=== PATIENT | male | born 1965 | race Caucasian/White ===

== ENCOUNTER 2023-11-18 13:07 | Inpatient (IN) | payer OTHER ==
[2023-11-18 14:57] LABS: Basophils % (A) 0 %; Eosinophils % (A) 0 %; HCT 38.8 % (39.0-53.0); HGB 12.9 gm/dL (13.0-17.5); Lymphocytes % (A) 14 %; MCH 33.7 pg (25.0-35.0); MCHC 33.2 g/dL (31.0-37.0); MCV 101.6 fL (80.0-100.0); Mean Platelet Volume 8.9; Monocytes # (A) 0.4 k/uL (0-1.0); Monocytes % (A) 6 %; Neutrophils # (A) 5.6 k/uL (1.3-7.7); Neutrophils % (A) 77 %; RBC 3.81 m/uL (4.30-5.90); RDW 12.9 % (11.5-15.5); WBC 7.2 k/uL (3.8-10.6)
[2023-11-18 15:07] LABS: ALT 62 U/L (4-49); African American GFR (CKD) >90 (>60 ml/min/1.73 sqM); Albumin 4.5 g/dL (3.5-5.0); Anion Gap 16 mmol/L; Blood Urea Nitrogen 16 mg/dL (9-20); Carbon Dioxide 20 mmol/L (22-30); Chloride 95 mmol/L (98-107); Glucose 105 mg/dL (74-99); Non-African American GFR(CKD) >90 (>60 ml/min/1.73 sqM); Sodium 131 mmol/L (137-145); Total Bilirubin 1.8 mg/dL (0.2-1.3); Total Protein 7.3 g/dL (6.3-8.2)
[2023-11-18 15:10] LABS: AST 110 U/L (17-59); Alkaline Phosphatase 107 U/L (38-126); Potassium 4.5 mmol/L (3.5-5.1)
[2023-11-18 15:40] LABS: Large Platelets Present
[2023-11-18 15:41] LABS: Platelet Count 86 k/uL (150-450)
[2023-11-18 15:42] LABS: Polychromasia Present
[2023-11-18] MEDS: SODIUM CHLORIDE 0.9% 1,000 ML IV ONE (15:52)
[2023-11-18] MEDS: KETOROLAC 15 MG/ML 1 ML VIAL IVP STA (15:52)
[2023-11-18] MEDS: ONDANSETRON 4 MG/2 ML VIAL IVP STA (16:00)
[2023-11-18] MEDS: SODIUM CHLORIDE 0.9% 1,000 ML BAG IV STA (16:01)
[2023-11-18] MEDS: LORazepam 2 MG/ML INJ IV STA (16:02)
--- NOTE | 2023-11-18 17:10 | CT ---
EXAMINATION TYPE: CT facial bones w con DATE OF EXAM: 11/18/2023 HISTORY: left sided facial pain and swelling TECHNIQUE: CT scan of the suprahyoid neck/facial skeleton. Automated exposure control for dose reduct ion was used. Total DLP: 532.8 mGycm IV Contrast: 100ml mL of Isovue 300. COMPARISON: None FINDINGS: There is prominence of the vasculature throughout and surrounding the right and left cavernous sinuse s, with prominence of the ophthalmic veins bilaterally and with minimal preseptal soft tissue swellin g of the orbits bilaterally, left greater than right. Mild inflammatory changes seen at the base of the right maxillary sinus. Remainder of the paranasal s inuses are clear. The middle ear cavities and mastoid sinus air cells are also clear. Salivary glands: Unremarkable. Neck vasculature: No acute findings. Skeletal structures: No focal aggressive findings. Results discussed just now with the ordering physician. IMPRESSION: Prominent cavernous sinus and orbital vasculature; recommend further characterization with brain MRI/ MRA without and with contrast.
[2023-11-18 18:21] LABS: Erythrocyte Sedimentation Rate 11 mm/Hr (0-20)
--- NOTE | 2023-11-18 18:27 | ED ---
General Adult HPI - General Chief complaint: Neuro Symptoms/Deficit Stated complaint: facial pain and swelling, detox Time Seen by Provider: 11/18/23 13:15 Source: patient Mode of arrival: ambulatory Limitations: no limitations - History of Present Illness Initial comments: 58-year-old male presents emergency department as a transfer from [facility]. Patient says that he has had chronic left-sided facial pain however over the past 3 days he has had worsening pain and swelling. States that this is very common for him to have worsening pain in the summertime. Patient was attempting to check into [facility] today for alcohol abuse. He mentioned that he was having sinus pain and they made him come to the hospital for medical clearance. He admits to pain that radiates to the back of his eye. Admits to some blurred vision in that eye. No fevers. No nasal drainage. Denies any trauma. Patient states that he has gone as far as seeing the "sinus clinic in [place]". no other alleviating, precipitating or modifying factors - Related Data Home Medications Medication Instructions Recorded Confirmed Dailyvite 1 tab PO DAILY 11/18/23 11/18/23 Fluticasone Nasal [place] [Flonase 2 spray EA NOSTRIL DAILY 11/18/23 11/18/23 Nasal [place]] Folic Acid 1 mg PO DAILY 11/18/23 11/18/23 Ibuprofen [Motrin] 800 mg PO Q8H PRN 11/18/23 11/18/23 Lactulose 20 gm PO DAILY PRN 11/18/23 11/18/23 Loperamide HCl [Imodium A-D] 4 mg PO QID PRN MDD 16 mg 11/18/23 11/18/23 Magnesium Oxide [West] 500 mg PO W/BRKFST 11/18/23 11/18/23 Mylanta Regular Strength 30 ml PO Q4H PRN 11/18/23 11/18/23 Pantoprazole [Protonix] 40 mg PO BID 11/18/23 11/18/23 Thiamine [Vitamin B-1] 100 mg PO DAILY 11/18/23 11/18/23 cloNIDine HCL [Catapres] 0.1 - 0.3 mg PO Q4H PRN 11/18/23 11/18/23 lisinopriL [Zestril] 10 mg PO DAILY 11/18/23 11/18/23 ondansetron HCL [Zofran] 8 mg PO Q6H PRN 11/18/23 11/18/23 Previous Rx's Medication Instructions Recorded Amoxic-Pot Clav 875-125Mg 1 tab PO Q12HR 5 Days #10 tab 11/22/23 [Augmentin 875-125] OXcarbazepine [Trileptal] 150 mg PO BID #60 tab 11/22/23 chlordiazePOXIDE HCl [Librium] 25 mg PO TID 2 Days #6 capsule 11/22/23 Allergies Allergy/AdvReac Type Severity Reaction Status Date / Time No Known Allergies Allergy Verified 11/18/23 14:26 Review of Systems ROS Statement: Those systems with pertinent positive or pertinent negative responses have been documented in the HPI. ROS Other: All systems not noted in ROS Statement are negative. Past Medical History Past Medical History: Hypertension Additional Past Medical History / Comment(s): alcohol abuse ([facility]) Past Surgical History: No Surgical Hx Reported Past Psychological History: No Psychological Hx Reported Smoking Status: Current every day smoker Past Alcohol Use History: Abuse, Daily General Exam Limitations: no limitations General appearance: alert, in no apparent distress Head exam: Present: atraumatic, normocephalic, normal inspection Eye exam: Present: normal appearance, PERRL, EOMI. Absent: scleral icterus, conjunctival injection, periorbital swelling ENT exam: Present: mucous membranes moist, other (Tenderness to palpation of the left maxillary sinus) Neck exam: Present: normal inspection. Absent: tenderness, meningismus, lymphadenopathy Respiratory exam: Present: normal lung sounds bilaterally. Absent: respiratory distress, wheezes, rales, rhonchi, stridor Cardiovascular Exam: Present: normal rhythm, tachycardia, normal heart sounds. Absent: systolic murmur, diastolic murmur, rubs, gallop, clicks GI/Abdominal exam: Present: soft, normal bowel sounds. Absent: distended, tenderness, guarding, rebound, rigid Extremities exam: Present: normal inspection, full ROM, normal capillary refill. Absent: tenderness, pedal edema, joint swelling, calf tenderness Back exam: Present: normal inspection Neurological exam: Present: alert, oriented X3, CN II-XII intact Psychiatric exam: Present: normal affect, normal mood Skin exam: Present: warm, dry, intact, normal color. Absent: rash Course Vital Signs 11/18/23 11/18/23 11/18/23 13:13 15:56 18:43 Temperature 98.3 F Pulse Rate 123 H 98 95 Pulse Rate [ Right] Respiratory 18 18 18 Rate Blood Pressure 132/91 144/88 162/95 Blood Pressure [Right Arm] O2 Sat by Pulse 96 97 97 Oximetry 11/19/23 11/19/23 11/19/23 01:50 05:49 07:00 Temperature 98.2 F Pulse Rate 77 Pulse Rate [ 72 Right] Respiratory 18 18 16 Rate Blood Pressure 142/100 Blood Pressure 155/106 159/92 [Right Arm] O2 Sat by Pulse 97 98 98 Oximetry Medical Decision Making - Medical Decision Making Was pt. sent in by a medical professional or institution (, PA, [employer], urgent care, hospital, or detention...) When possible be specific @ -Patient was sent in by [facility] Did you speak to anyone other than the patient for history (EMS, parent, family, police, friend...)? What history was obtained from this source @ -Spoke with EMS for history Did you review nursing and triage notes (agree or disagree)? Why? @ -I reviewed and agree with nursing and triage notes Were old charts reviewed (outside hosp., previous admission, EMS record, old EKG, old radiological studies, urgent care reports/EKG's, detention records)? Report findings @ -No old charts were reviewed Differential Diagnosis (chest pain, altered mental status, abdominal pain women, abdominal pain men, vaginal bleeding, weakness, fever, dyspnea, syncope, headache, dizziness, GI bleed, back pain, seizure, CVA, palpatations, mental health, musculoskeletal)? @ -Acute sinusitis, cluster headache, chronic sinusitis, sinus thrombus EKG interpreted by me (3pts min.). @ -Yes and demonstrates sinus tachycardia with a rate of 102. DE interval 146. QRS 88. QTc of 385. No acute ST segment elevations or depressions X-rays interpreted by me (1pt min.). @ -None done CT interpreted by me (1pt min.). @ -Yes and demonstrates irregularity of the cavernous sinus and orbital vascula ture. Recommend MRI MRA U/S interpreted by me (1pt. min.). @ -None done What testing was considered but not performed or refused? (CT, X-rays, U/S, labs)? Why? @ -None What meds were considered but not given or refused? Why? @ -None Did you discuss the management of the patient with other professionals (professionals i.e. , PA, [employer], lab, RT, psych nurse, psychosocial rehabilitation counselor, manager night, te acher, commanding officer garage, insurance case manager)? Give summary @ -I spoke with Dr. Osborne in regards to the CT. He does recommend MRI. I called and spoke with Dr. Abreu who is the neurointensivist. Asked whether the patient should be transferred today for further imaging however he said that the patient should stay at [facility] and obtain MRI. If patient has abnormal MRI/MRA then transfer could be initiated at that time Was smoking cessation discussed for >3mins.? @ -No Was critical care preformed (if so, how long)? @ -No Were there social determinants of health that impacted care today? How? (Homelessness, low income, unemployed, alcoholism, drug addiction, transportation, low edu. Level, literacy, decrease access to med. care, halfway, rehab)? @ -Patient is currently in rehab Was there de-escalation of care discussed even if they declined (Discuss DNR or withdrawal of care, Hospice)? DNR status @ -No What co-morbidities impacted this encounter? (DM, HTN, Smoking, COPD, CAD, Cancer, CVA, ARF, Chemo, Hep., AIDS, mental health diagnosis, sleep apnea, morbid obesity)? @ -Chronic left-sided sinus pain Was patient admitted / discharged? Hospital course, mention meds given and route, prescriptions, significant lab abnormalities, going to OR and other pertinent info. @ -Upon arrival patient was seen and evaluated in [place] [address]. Thorough history and physical exam was performed. IV was established. Laboratory studies were conducted. Patient did have a CT of his head as he is reporting to worsening symptoms over the past couple of days. CT is read as an irregularity of the cavernous sinus. The radiologist is recommending an MRI and MRA. I called and spoke with Dr. Abreu who states that the studies should be obtained before transfer. Patient will be admitted to [facility] with the MRA and MRI ordered. Neurology will be consulted. Patient was agreeable with this plan and he was admitted to the floor in stable condition Undiagnosed new problem with uncertain prognosis? @ -No Drug Therapy requiring intensive monitoring for toxicity (Heparin, Nitro, Insulin, Cardizem)? @ -No Were any procedures done? @ -No Diagnosis/symptom? @ -Acute exacerbation of left-sided facial pain, possible cavernous sinus thrombus Acute, or Chronic, or Acute on Chronic? @ -Acute on chronic Uncomplicated (without systemic symptoms) or Complicated (systemic symptoms)? @ -Complicated Side effects of treatment? @ -No Exacerbation, Progression, or Severe Exacerbation? @ -No Poses a threat to life or bodily function? How? (Chest pain, [place], [place], pneumonia, PE, COPD, DKA, ARF, appy, cholecystitis, CVA, Diverticulitis, Homicidal, Suicidal, threat to staff... and all critical care pts) @ -No - Lab Data Result diagrams: 11/21/23 05:34 11/21/23 05:34 Lab Results 11/18/23 11/18/23 Range/Units 14:50 14:50 WBC 7.2 (3.8-10.6) k/uL RBC 3.81 L (4.30-5.90) m/uL Hgb 12.9 L (13.0-17.5) gm/dL Hct 38.8 L (39.0-53.0) % MCV 101.6 H (80.0-100.0) fL MCH 33.7 (25.0-35.0) pg MCHC 33.2 (31.0-37.0) g/dL RDW 12.9 (11.5-15.5) % Plt Count 86 L (150-450) k/uL MPV 8.9 Neutrophils % 77 % Lymphocytes % 14 % Monocytes % 6 % Eosinophils % 0 % Basophils % 0 % Neutrophils # 5.6 (1.3-7.7) k/uL Lymphocytes # 1.0 (1.0-4.8) k/uL Monocytes # 0.4 (0-1.0) k/uL Eosinophils # 0.0 (0-0.7) k/uL Basophils # 0.0 (0-0.2) k/uL Manual Slide Review Performed Large Platelets Present Polychromasia Present ESR 11 (0-20) mm/Hr Sodium 131 L (137-145) mmol/L Potassium 4.5 (3.5-5.1) mmol/L Chloride 95 L (98-107) mmol/L Carbon Dioxide 20 L (22-30) mmol/L Anion Gap 16 mmol/L BUN 16 (9-20) mg/dL Creatinine 0.70 (0.66-1.25) mg/dL Est GFR (CKD-EPI)AfAm >90 (>60 ml/min/1.73 sqM) Est GFR (CKD-EPI)NonAf >90 (>60 ml/min/1.73 sqM) Glucose 105 H (74-99) mg/dL Calcium 9.0 (8.4-10.2) mg/dL Total Bilirubin 1.8 H (0.2-1.3) mg/dL AST 110 H (17-59) U/L ALT 62 H (4-49) U/L Alkaline Phosphatase 107 (38-126) U/L Total Protein 7.3 (6.3-8.2) g/dL Albumin 4.5 (3.5-5.0) g/dL Disposition Clinical Impression: Sinus pain, Ocular pain, left eye, Thrombosis of cavernous venous sinus Disposition: ADMITTED IP TO THIS [facility] Condition: Serious Is patient prescribed a controlled substance at d/c from ED?: No Time of Disposition: 18:35 Decision to Admit Reason: Admit from EC Decision Date: 11/18/23 Decision Time: 18:35
[2023-11-18] MEDS ORDERED: LORazepam 2 MG/ML INJ IV PRN (18:31)
[2023-11-18] MEDS ORDERED: NALOXONE 0.4 MG/ML 1 ML VIAL IV PRN (18:40)
[2023-11-18] MEDS: SODIUM CHLORIDE 0.9% 1,000 ML IV SCH (19:20)
[2023-11-18] MEDS: THIAMINE 100 MG/ML 2 ML VIAL IM STA (19:21)
[2023-11-18] MEDS: LORazepam 2 MG/ML INJ IV PRN (19:49)
[2023-11-18] MEDS ORDERED: KETOROLAC 15 MG/ML 1 ML VIAL IM PRN (22:37)
[2023-11-18] MEDS: ONDANSETRON 4 MG/2 ML VIAL IVP PRN (23:27)
[2023-11-18] MEDS: PANTOPRAZOLE 40 MG/10 ML VIAL IVP SCH (23:27)
[2023-11-18] MEDS: KETOROLAC 15 MG/ML 1 ML VIAL IVP PRN (23:31)
[2023-11-19] MEDS: LORazepam 2 MG/ML INJ IV PRN (06:48)
[2023-11-19] MEDS ORDERED: LORazepam 1 MG/0.5 ML VIAL IV PRN ×2 (08:23→08:24)
[2023-11-19] MEDS: THIAMINE 100 MG TAB PO SCH (09:12)
[2023-11-19] MEDS: HYDROmorphone 0.5 MG/0.5 ML SYRINGE IVP PRN (09:20)
[2023-11-19 11:28] LABS: BUN/Creat Ratio 19.14 Ratio (12.00-20.00); Blood Urea Nitrogen 13.4 mg/dL (9.0-27.0); Calcium 8.7 mg/dL (8.7-10.3); Carbon Dioxide 20.3 mmol/L (21.6-31.8); Chloride 99 mmol/L (96-109); Glucose 125 mg/dL (70-110); Potassium 3.3 mmol/L (3.5-5.5); Sodium 134 mmol/L (135-145)
[2023-11-19 12:05] LABS: Basophils # (A) 0.02 X 10*3/uL (0.00-0.10); Basophils % (A) 0.4 %; Eosinophils # (A) 0.24 X 10*3/uL (0.04-0.35); Eosinophils % (A) 5.1 %; HCT 31.8 % (39.6-50.0); HGB 11.1 g/dL (13.0-17.0); Lymphocytes # (A) 1.56 X 10*3/uL (0.90-5.00); Lymphocytes % (A) 33.3 %; MCH 33.8 pg (27.0-32.0); MCHC 34.9 g/dL (32.0-37.0); Mean Platelet Volume 11.3 FL (9.5-12.2); Monocytes # (A) 0.63 X 10*3/uL (0.20-1.00); Monocytes % (A) 13.4 %; NRBC Per 100 WBC 0 X 10*3/uL (0.00-0.01); Neutrophils # (A) 2.23 X 10*3/uL (1.80-7.70); Neutrophils % (A) 47.6 %; Platelet Count 62 X 10*3/uL (140-440); RBC 3.28 X 10*6/uL (4.40-5.60); RDW 12.9 % (11.5-14.5); WBC 4.69 X 10*3/uL (4.50-10.00)
[2023-11-19] MEDS: predniSONE 20 MG TAB PO SCH (13:29)
[2023-11-19] MEDS ORDERED: LOPERAMIDE 2 MG CAP PO PRN (13:41)
[2023-11-19] MEDS ORDERED: LACTULOSE 200 GM/300 ML (FROM 1/2 GAL JUG) PO PRN (13:41)
[2023-11-19] MEDS ORDERED: ONDANSETRON 4 MG TAB PO PRN (13:41)
[2023-11-19] MEDS ORDERED: LACTULOSE 20 GM/30 ML CUP PO PRN (13:52)
[2023-11-19] MEDS: cloNIDine HCL 0.1 MG TAB PO SCH (14:18)
--- NOTE | 2023-11-19 15:02 | PN ---
PROGRESS NOTE DATE OF SERVICE: 11/19/2023 CHIEF COMPLAINT: Left facial swelling and severe pain, and detoxification. HISTORY OF PRESENT ILLNESS: This is a 58-year-old gentleman with a past medical history of multiple medical problems including history of EtOH in [place] . The patient is complaining of pain and swelling of the left facial area. The patient came to [facility] and a face CAT scan was done, which showed prominent cavernous sinus and vasculature. MRI with and without contrast is being recommended by the CAT scan. There is no history of any fever, rigors, or chills. No history of headache or loss of consciousness. PAST MEDICAL HISTORY: History of EtOH, history of hypertension, rest of the history and rest of chart is also reviewed. HOME MEDICATIONS: Reviewed include Zofran, doses and rest of medications noted. ALLERGIES: None. FAMILY HISTORY: No history of heart disease or strokes in the family. SOCIAL HISTORY: Smoking and alcohol. REVIEW OF SYSTEMS: A 14-point review is negative except as mentioned earlier. PHYSICAL EXAMINATION: VITAL SIGNS: Pulse 72, blood pressure 150/92, respirations 16. HEENT: Conjunctivae normal. Facial swelling and pain present. NECK: No jugular venous distention. CARDIOVASCULAR: S1, S2. RESPIRATIONS: Diminished at the bases, few scattered rhonchi and crackles. ABDOMEN: Soft. NERVOUS SYSTEM: Nonfocal. LEGS: No edema, no swelling. SKIN: No ulcer, rash, bleeding. JOINTS: No active deforming arthropathy. LABORATORY DATA: WBC 4.6, hemoglobin is 11.1, rest of the labs noted. ASSESSMENT: 1. Left eye pain and swelling, possibly rule out cavernous sinus thrombosis. 2. Rule out periorbital infection and cellulitis. 3. ETOH and withdrawal. 4. Hyponatremia. 5. Hypokalemia. 6. Anemia. 7. Multiple complex medical issues. 8. Hypertension. 9. History of nicotine dependence. RECOMMENDATIONS AND DISCUSSION: This 58-year-old gentleman presented with multiple complex medical issues, we will monitor the patient closely, we will initiate current medications. I would recommend MRI of the brain with and without contrast and assess MRV. I would also recommend Infectious Disease evaluation, cultures, sed rate, CIWA protocol. Overall prognosis is extremely guarded because of multiple complex medical issues. Further recommendations to follow. MMODL / IJN: [id number] / [facility]
--- NOTE | 2023-11-19 17:21 | MR ---
EXAMINATION TYPE: MRA head wo con MRV head wo con DATE OF EXAM: 11/19/2023 5:06 PM CLINICAL INDICATION:Male, 58 years old with history of occular pain, abn ct brain, Occular pain, Abno rmal CT brain COMPARISON: MRI same day, CT facial bones 11/18/2023. TECHNIQUE: MRA brain: 3-D [id number] Axial with MIP and 3-D reconstruction performed on a separate workstati on. MRV of the brain: performed utilizing two-dimensional [id number] technique MIP and 3-D reconstruc tion. Performed on a separate workstation. IV Contrast: cc (None if empty) Findings: Vertebral arteries: The vertebral arteries are patent. Vertebral arteries are codominant. Basilar artery: The basilar artery is intact. The basilar artery bifurcation is normal. Internal Carotid arteries: The cervical, petrous, cavernous and supraclinoid segments are normal. ALEJANDRO: Patent without evidence of aneurysm. ACOM: Patent without evidence of aneurysm. MCA: Patent without evidence of aneurysm. SLEEP MANAGER: Patent without evidence of aneurysm. PCOM: Hypoplastic bilaterally. There is no evidence of venous occlusion or collateral circulation. There is no evidence of sinus th rombosis. Dominant right transverse sinus and atrophic diminutive left. IMPRESSION: 1. No evidence of venous sinus thrombosis. 2. No evidence of intracranial aneurysm or significant stenosis.
[2023-11-19] MEDS: AMPICILLIN-SULBACTAM 3 GM in SODIUM CHLORIDE 0.9% 100 ML IVPB SCH (18:19)
[2023-11-19] MEDS: LORazepam 1 MG/0.5 ML VIAL IV PRN (18:20)
--- NOTE | 2023-11-19 22:52 | P.CONS ---
History of Present Illness - Reason for Consult Consult date: 11/19/23 Infection questionable Requesting physician: Morgan Guillermo - Chief Complaint Left periorbital and maxillary pain x days - History of Present Illness Patient is a 58-year-old male with a past medical history significant for hypertension alcohol abuse current everyday smoker presenting to the hospital for evaluation of pain to the left periorbital and left maxillary area that apparently has been going on for 2 weeks now patient mention has been evaluated in the outpatient setting and has been treated with steroids and decongestant without any improvement patient has been describing the pain to be sharp moderate to severe intensity without radiation with associated swelling but no drainage patient denies having any photophobia difficulty swallowing or significant postnasal drip with the symptoms the patient has been evaluated on presentation to the hospital patient was afebrile and no fever have recorded subsequently patient was not tachycardic hypotensive or hypoxic and no need for supplemental oxygen patient did have white count of 7.2 creatinine 0.70 electrolytes are normal liver isms are mildly elevated have patient did have a CT that have been suggestive prominent cavernous sinus and orbital vasculature recommend further characterization with a brain MRI which has been ordered currently in progress infectious was consulted for possible infection and need for antibiotic therapy Review of Systems Positive point and negatives has been mentioned in the HPI, complete review of systems was performed and all other systems are negative Past Medical History Past Medical History: Hypertension Additional Past Medical History / Comment(s): alcohol abuse ([facility]) History of Any Multi-Drug Resistant Organisms: None Reported Past Surgical History: Cholecystectomy Past Anesthesia/Blood Transfusion Reactions: No Reported Reaction Past Psychological History: No Psychological Hx Reported Smoking Status: Current every day smoker Past Alcohol Use History: Abuse, Daily Past Drug Use History: None Reported Medications and Allergies Home Medications Medication Instructions Recorded Confirmed Type Dailyvite 1 tab PO DAILY 11/18/23 11/18/23 History Fluticasone Nasal [place] [Flonase 2 spray EA NOSTRIL DAILY 11/18/23 11/18/23 History Nasal [place]] Folic Acid 1 mg PO DAILY 11/18/23 11/18/23 History Ibuprofen [Motrin] 800 mg PO Q8H PRN 11/18/23 11/18/23 History Lactulose 20 gm PO DAILY PRN 11/18/23 11/18/23 History Loperamide HCl [Imodium A-D] 4 mg PO QID PRN MDD 16 mg 11/18/23 11/18/23 History Magnesium Oxide [West] 500 mg PO W/BRKFST 11/18/23 11/18/23 History Mylanta Regular Strength 30 ml PO Q4H PRN 11/18/23 11/18/23 History Pantoprazole [Protonix] 40 mg PO BID 11/18/23 11/18/23 History Thiamine [Vitamin B-1] 100 mg PO DAILY 11/18/23 11/18/23 History cloNIDine HCL [Catapres] 0.1 - 0.3 mg PO Q4H PRN 11/18/23 11/18/23 History lisinopriL [Zestril] 10 mg PO DAILY 11/18/23 11/18/23 History ondansetron HCL [Zofran] 8 mg PO Q6H PRN 11/18/23 11/18/23 History Amoxic-Pot Clav 875-125Mg 1 tab PO Q12HR 5 Days #10 tab 11/22/23 Rx [Augmentin 875-125] OXcarbazepine [Trileptal] 150 mg PO BID #60 tab 11/22/23 Rx chlordiazePOXIDE HCl [Librium] 25 mg PO TID 2 Days #6 capsule 11/22/23 Rx Allergies Allergy/AdvReac Type Severity Reaction Status Date / Time No Known Allergies Allergy Verified 11/18/23 14:26 Physical Exam Vitals: Vital Signs Temp Pulse Pulse Resp BP BP Pulse Ox 11/19/23 14:17 78 155/95 11/19/23 07:00 98.2 F 72 16 159/92 98 11/19/23 05:49 77 18 142/100 98 11/19/23 01:50 18 155/106 97 11/18/23 18:43 95 18 162/95 97 11/18/23 15:56 98 18 144/88 97 Intake and Output 11/18/23 11/19/23 11/19/23 22:59 06:59 14:59 Intake Total 118 Balance 118 Intake: Oral 118 Other: Voiding Method Toilet Weight 75.75 kg GENERAL DESCRIPTION: Middle-aged male lying in bed, no distress. No tachypnea or accessory muscle of respiration use. HEENT: Shows Pallor , no scleral icterus. Oral mucous membrane is dry. No pharyngeal erythema or thrush NECK: Trachea central, no thyromegaly. LUNGS: Unlabored breathing. Clear to auscultation anteriorly. No wheeze or crackle. HEART: S1, S2, regular rate and rhythm. No loud murmur ABDOMEN: Soft, no tenderness , guarding or rigidity, no organomegaly EXTREMITIES: No edema of feet. SKIN: No rash, no masses palpable. NEUROLOGICAL: The patient is awake, alert, oriented x3, mood and affect normal. Results CBC & Chem 7: 11/21/23 05:34 11/21/23 05:34 Labs: Abnormal Lab Results - Last 24 Hours (Table) 11/18/23 11/18/23 11/19/23 Range/Units 14:50 14:50 07:29 RBC 3.81 L 3.28 L (4.30-5.90) m/uL Hgb 12.9 L 11.1 L (13.0-17.5) gm/dL Hct 38.8 L 31.8 L (39.0-53.0) % MCV 101.6 H (80.0-100.0) fL MCH 33.8 H (27.0-32.0) pg Plt Count 86 L 62 L (150-450) k/uL Immature Plt Fraction 9.0 H (1.1-6.1) % Sodium 131 L (137-145) mmol/L Potassium (3.5-5.5) mmol/L Chloride 95 L (98-107) mmol/L Carbon Dioxide 20 L (22-30) mmol/L Anion Gap (4.00-12.00) mmol/L Glucose 105 H (74-99) mg/dL Total Bilirubin 1.8 H (0.2-1.3) mg/dL AST 110 H (17-59) U/L ALT 62 H (4-49) U/L 11/19/23 Range/Units 07:29 RBC (4.30-5.90) m/uL Hgb (13.0-17.5) gm/dL Hct (39.0-53.0) % MCV (80.0-100.0) fL MCH (27.0-32.0) pg Plt Count (150-450) k/uL Immature Plt Fraction (1.1-6.1) % Sodium 134 L (137-145) mmol/L Potassium 3.3 L (3.5-5.5) mmol/L Chloride (98-107) mmol/L Carbon Dioxide 20.3 L (22-30) mmol/L Anion Gap 14.70 H (4.00-12.00) mmol/L Glucose 125 H (74-99) mg/dL Total Bilirubin (0.2-1.3) mg/dL AST (17-59) U/L ALT (4-49) U/L Assessment and Plan (1) Sinus pain Status: Acute Code(s): J34.89 - OTHER SPECIFIED DISORDERS OF NOSE AND NASAL SINUSES SNOMED Code(s): 10145613 Plan: 1patient presented to hospital with left periorbital and maxillary area pain that has been going on for more than 2 weeks failed respond to the steroid and decongestant therapy with a possible component of bacterial sinusitis not entirely excluded. Abnormality on the facial CT MRI and MRA has been ordered per radiology recommendation 2-we will check inflammatory markers 3-start empirical Unasyn 3 g every 6 hours while waiting for the workup to be completed We will follow on clinical condition and cultures to further adjust medication if needed Thank you for this consultation we will follow the patient along with you Dictation was produced using [employer] dictation software. please excuse any grammatical, word or spelling errors. Time with Patient: Greater than 30
[2023-11-20] MEDS: MAGNESIUM OXIDE 400 MG TAB PO SCH (05:50)
[2023-11-20] MEDS: lisinopriL 10 MG TAB PO SCH (08:52)
[2023-11-20] MEDS: FOLIC ACID 1 MG TAB PO SCH (08:52)
[2023-11-20] MEDS: MULTIVITAMINS, THERA 1 EACH TAB PO SCH (08:52)
[2023-11-20] MEDS ORDERED: FOLIC ACID-VIT B COMPLEX-VIT C 1 CAP PO SCH (09:00)
--- NOTE | 2023-11-20 09:18 | MR ---
EXAMINATION TYPE: MR brain wo/w con DATE OF EXAM: 11/19/2023 5:17 PM CLINICAL INDICATION:Male, 58 years old with history of occular pain, abn ct brain, Occular pain, Abno rmal CT brain COMPARISON: MRI/MRA same day TECHNIQUE: Multi planar, multi sequence imaging was performed through the brain including: T1, T2, In version recovery, susceptibility weighted imaging and gradient echo imaging and Diffusion weighted im aging. The patient was then given intravenous contrast and multi planar, T1 fat-saturation images wer e obtained. IV Contrast: 7.5 cc Gadavist FINDINGS: The pineal gland demonstrates a mass measuring 11 x 11 mm which is higher FLAIR signal and high T2 signal. Thin septations are suggested on T1-weighted sagittal imaging. T2-weighted imaging moreno s poor slice selection. The intraconal and extra conal fat are relatively symmetric no abnormal orbit al enhancing masses identified. The conde-white junctions, ventricular system, basal cisterns appear u nremarkable. Diffusion-weighted imaging shows no evidence of restricted diffusion to suggest acute/s ubacute infarct. Intracranial arterial flow voids are maintained. Midline structures show no abnormal ity. Scattered foci of high T2 signal intensity are seen within the periventricular white matter. The susceptibility weighted images do not reveal any evidence for micro-hemorrhage. After administration of gadolinium, no abnormal enhancement is seen. The bone marrow signal is within normal limits. Paranasal sinuses and mastoid air cells: Mild scattered paranasal sinus disease. Visualized orbits: Orbital contents are intact. IMPRESSION: 1. No abnormal postcontrast enhancement involving the globes and orbits. The intraconal extraconal fa t are relatively symmetrical. No evidence of acute/subacute infarct, or abnormal enhancement. 2. 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 Consider short-term follow-up in 3-6 months. Comparison with remote pr iors at outside institutions may be of benefit for stability.
--- NOTE | 2023-11-20 09:33 | P.CNNES ---
History of Present Illness Consult date: 11/19/23 Requesting physician: Rochelle Dukes Reason for Consult: left sinus pain, abn ct brain History of Present Illness: Patient is a 58-year-old left-handed male came to the hospital yesterday at 1:07 PM for headaches. Patient has history of alcohol abuse, and went to [place] yesterday morning for detox. Patient states that he has tried AA, which did not work. Patient has 5 to 10-year history of alcoholism. Patient was complaining of left orbital pain which was very intense, therefore he was sent to the hospital for further evaluation. Patient states that he developed intermittent clusters of left facial pain, involving the left V1 distribution, around the eyes, nose, left cheek since 2009. Initially it was very light. However the pain has recurred every summer. The pain usually starts in October, and continues till December every year and then goes away for rest of the year. He has seen neurologist, who diagnosed him with cluster headache. He had undergone MRI in the past. The pain started again about 1-1/2 weeks ago it is a continuous pain, would not stop. This time the pain is worst than ever. When he eats, drinks, it gets worse, when it feels like "fire dots into his eyes". It has b een steadily getting worse. He is scared to eat or drink because of the pain. Cold wind also bothers him. He gets nausea with the headache. Vital signs on arrival blood pressure 132/91, pulse rate 123, temperature 98.3. Blood test shows normal WBC hemoglobin 12.9 with elevated MCV 101.6. Platelets 86. Sodium 131 potassium 4.5. Renal functions are normal. AST 1 and 10, ALT 62. CT head showed prominent cavernous sinus and orbital vasculature, recommend further characterization with brain MRI/MRA with and without contrast. I personally reviewed CT head and agree with the findings.. EKG showed sinus tachycardia. Patient has history of smoking half pack per day since age 15. He has hypertension. Patient states that he used to be a weekend drinker but for last 1 year he has been drinking really hard, about 1 pint of vodka per day. Home medications include folic acid, lactulose, Protonix, lisinopril, thiamine, clonidine. Review of Systems All review of systems reviewed, completely unremarkable, except as pertinent positive and negative mentioned in the HPI. Denies any weight loss. No double vision, loss of vision. No chest pain, abdominal pain. Past Medical History Past Medical History: Hypertension Additional Past Medical History / Comment(s): alcohol abuse ([facility]) History of Any Multi-Drug Resistant Organisms: None Reported Past Surgical History: Cholecystectomy Past Anesthesia/Blood Transfusion Reactions: No Reported Reaction Past Psychological History: No Psychological Hx Reported Smoking Status: Current every day smoker Past Alcohol Use History: Abuse, Daily Past Drug Use History: None Reported Medications and Allergies Home Medications Medication Instructions Recorded Confirmed Type Dailyvite 1 tab PO DAILY 11/18/23 11/18/23 History Fluticasone Nasal [place] [Flonase 2 spray EA NOSTRIL DAILY 11/18/23 11/18/23 His tory Nasal [place]] Folic Acid 1 mg PO DAILY 11/18/23 11/18/23 History Ibuprofen [Motrin] 800 mg PO Q8H PRN 11/18/23 11/18/23 History Lactulose 20 gm PO DAILY PRN 11/18/23 11/18/23 History Loperamide HCl [Imodium A-D] 4 mg PO QID PRN MDD 16 mg 11/18/23 11/18/23 History Magnesium Oxide [West] 500 mg PO W/BRKFST 11/18/23 11/18/23 History Mylanta Regular Strength 30 ml PO Q4H PRN 11/18/23 11/18/23 History Pantoprazole [Protonix] 40 mg PO BID 11/18/23 11/18/23 History Thiamine [Vitamin B-1] 100 mg PO DAILY 11/18/23 11/18/23 History cloNIDine HCL [Catapres] 0.1 - 0.3 mg PO Q4H PRN 11/18/23 11/18/23 History lisinopriL [Zestril] 10 mg PO DAILY 11/18/23 11/18/23 History ondansetron HCL [Zofran] 8 mg PO Q6H PRN 11/18/23 11/18/23 History Allergies Allergy/AdvReac Type Severity Reaction Status Date / Time No Known Allergies Allergy Verified 11/18/23 14:26 Physical Examination - Vital Signs Vital Signs: Vital Signs Temp Pulse Pulse Resp BP BP Pulse Ox 11/19/23 07:00 98.2 F 72 16 159/92 98 11/19/23 05:49 77 18 142/100 98 11/19/23 01:50 18 155/106 97 11/18/23 18:43 95 18 162/95 97 11/18/23 15:56 98 18 144/88 97 11/18/23 13:13 98.3 F 123 H 18 132/91 96 Intake and Output 11/18/23 11/19/23 11/19/23 22:59 06:59 14:59 Other: Voiding Method Toilet Weight 75.75 kg Patient is a middle aged male, in no acute distress. Patient is alert awake oriented to time place and person. Speech and language functions are normal. Patient can name and repeat very well. No aphasia or dysarthria. Attention, concentration and fund of knowledge is adequate. Patient is having intermittent bouts of left facial pain in which she has difficulty with speaking. On cranial nerve examination, pupils are equal, round and reacting to light, visual ramos are full on confrontation, with no neglect on double simultaneous stimulation. No Tona's. Extraocular muscles are intact with no nystagmus. Face is symmetric, tongue protrudes to the midline. Palatal elevation and sensation normal, hearing and shoulder shrug normal, facial sensation normal. On muscle strength testing, there is no pronator drift and the strength is normal in arms and legs distally and proximally. Deep tendon reflexes are symmetric 1+ to 2 all over and plantars downgoing. Sensory to touch is equal with no neglect on double simultaneous stimulation. Cerebellar function showed no ataxia for [id number] testing. No dysdiadochokinesia. No ataxia for [id number] testing on either side. Tone and bulk of muscles normal. Gait deferred.. On general examination, there is no carotid bruit or murmur, S1-S2 audible. Chest is clear on consultation. Abdomen is soft nontender. No organomegaly, bowel sounds present. Peripheral pulses are present. No peripheral edema. Results - Laboratory Findings CBC and BMP: 11/19/23 07:29 11/19/23 07:29 Abnormal Lab Findings: Abnormal Labs 11/18/23 11/18/23 11/19/23 14:50 14:50 07:29 RBC 3.81 L 3.28 L Hgb 12.9 L 11.1 L Hct 38.8 L 31.8 L MCV 101.6 H MCH 33.8 H Plt Count 86 L 62 L Immature Plt Fraction 9.0 H Sodium 131 L Potassium Chloride 95 L Carbon Dioxide 20 L Anion Gap Glucose 105 H Total Bilirubin 1.8 H AST 110 H ALT 62 H 11/19/23 07:29 RBC Hgb Hct MCV MCH Plt Count Immature Plt Fraction Sodium 134 L Potassium 3.3 L Chloride Carbon Dioxide 20.3 L Anion Gap 14.70 H Glucose 125 H Total Bilirubin AST ALT Assessment and Plan Assessment: * Intermittent clusters of headache involving the left orbital/upper cheek region, that occurs almost every summer from October through December and then goes away. He has some triggers including eating, drinking or exposure to cold air. His headache has features of both cluster headache, as well as trigeminal neuralgia. Patient states that once the headache goes away in around December, then he has no triggers, and no pain until it comes back the following year in October. CT head was reviewed. There is some right maxillary sinus congestion with possible polyp versus fluid, however no abnormality noted involving the symptomatic left side, in the left maxillary, frontal or sphenoid sinuses. * Chronic alcoholism * Tobacco use * Hypertension Plan: * Patient's headaches has features of cluster headache, as well as some features of trigeminal neuralgia. At this time, we will treat for possible cluster headache with high-dose prednisone, which sometimes aborts these cluster headaches. Patient will be started on prednisone 60 mg daily. If the headache resolves, we will slowly taper down prednisone and may consider treatment like verapamil or lithium. If the headache does not respond to prednisone, we will consider Tegretol. Possible side effects of high-dose prednisone was discussed. * Patient undergoing MRI of the brain with and without contrast, and MRA and MRV of the head. * Optimize control of blood pressure. * Neurology will follow. Thank you for the consult.
[2023-11-20] MEDS ORDERED: Magnesium Replacement Protocol 1 EACH MISC MISCELLANE PRN (10:16)
[2023-11-20] MEDS ORDERED: Potassium Replacement Protocol 1 EACH MISC MISCELLANE PRN (10:16)
[2023-11-20] MEDS: FLUTICASONE 50MCG/SPRAY NASAL 16GM EA NOSTRIL SCH (11:21)
[2023-11-20] MEDS: POTASSIUM CHLORIDE ER 20 MEQ TAB.ER PO SCH (12:35)
[2023-11-20 14:41] LABS: African American GFR (CKD) >90 (>60 ml/min/1.73 sqM); Anion Gap 6 mmol/L; Blood Urea Nitrogen 7 mg/dL (9-20); Calcium 8.5 mg/dL (8.4-10.2); Carbon Dioxide 22 mmol/L (22-30); Chloride 100 mmol/L (98-107); Glucose 153 mg/dL (74-99); Non-African American GFR(CKD) >90 (>60 ml/min/1.73 sqM); Potassium 3.6 mmol/L (3.5-5.1); Sodium 128 mmol/L (137-145)
[2023-11-20] MEDS: OXcarbazepine 150 MG TAB PO SCH (15:38)
[2023-11-20] MEDS: HEPARIN SODIUM,PORCINE 5,000 UNIT/ML 1 ML VIAL SQ SCH (15:38)
[2023-11-20] MEDS: cloNIDine HCL 0.1 MG TAB PO SCH (15:38)
--- NOTE | 2023-11-20 23:17 | PN ---
PROGRESS NOTE DATE OF SERVICE: 11/20/2023 SUBJECTIVE: This is a 58-year-old gentleman, admitted with left facial swelling, had concerns with cavernous sinus thrombosis. The patient has extensive evaluation including MRI. MRI did not show any abnormality in the cavernous sinus intracranially or around the orbit. The patient is on empiric antibiotics per the Infectious Disease evaluation. Symptomatic treatment is also being continued. [facility]. PAST MEDICAL HISTORY: Reviewed. REVIEW OF SYSTEMS: A 14-point review is negative except as mentioned earlier. CURRENT MEDICATIONS: Reviewed include Unasyn, dose and rest of medications reviewed. PHYSICAL EXAMINATION: VITAL SIGNS: Pulse is 83, blood pressure 141/82, respirations 17. HEENT: Conjunctivae normal. CARDIOVASCULAR: S1, S2. RESPIRATIONS: Few scattered rhonchi. ABDOMEN: Soft. NERVOUS SYSTEM: Nonfocal. LABORATORY DATA: Sodium 134, potassium 3.3. ASSESSMENT: 1. Left eye pain and swelling, possibly maxillary sinusitis. 2. Cavernous sinus thrombosis and intracranial pathology ruled out by MRI. 3. No evidence of periorbital infection. 4. ETOH withdrawal. 5. Hypertension. 6. Hyponatremia. 7. Hypokalemia. 8. Multiple complex medical issues. RECOMMENDATIONS AND DISCUSSION: Recommend to continue current management. Recommend repeat labs. Closely monitor. Symptomatic treatment. Pain management. Continue empiric antibiotics. I would increase clonidine to t.i.d. to the current regimen. Prognosis guarded because of multiple complex medical issues. Further recommendations to follow. MMNUPURL / RADUN: [id number] /
[2023-11-21 09:20] LABS: ALT 44 U/L (10-49); AST 55 U/L (14-35); Albumin 3.6 g/dL (3.8-4.9); Albumin/Globulin Ratio 1.64 Ratio (1.60-3.17); Alkaline Phosphatase 95 U/L (41-126); Calcium 8.8 mg/dL (8.7-10.3); Carbon Dioxide 21.3 mmol/L (21.6-31.8); Chloride 98 mmol/L (96-109); Globulin 2.2 g/dL (1.6-3.3); Glucose 123 mg/dL (70-110); Magnesium 1.4 mg/dL (1.5-2.4); Potassium 3.9 mmol/L (3.5-5.5); Sodium 129 mmol/L (135-145); Total Bilirubin 0.8 mg/dL (0.3-1.2); Total Protein 5.8 g/dL (6.2-8.2)
--- NOTE | 2023-11-21 11:10 | P.PN ---
Subjective Progress Note Date: 11/20/23 Principal diagnosis: Reason for follow-up is abnormal CT and question of infection Patient is a 58-year-old male with a past medical history significant for hypertension alcohol abuse current everyday smoker presenting to the hospital for evaluation of pain to the left periorbital and left maxillary area that apparently has been going on for 2 weeks and failed to respond to the outpatient decongestion and steroids CT did show some prominent vascularization and recommended MRI which is completed with no evidence of any acute or subacute infarct there was a 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 No CBC was done today creatinine 0.46 blood cultures pending Objective - Vital Signs Vital signs: Vital Signs Temp 97.8 F 11/20/23 07:00 Pulse 83 11/20/23 07:00 Resp 17 11/20/23 07:00 BP 141/89 11/20/23 07:00 Pulse Ox 97 11/20/23 07:00 FiO2 Intake & Output 11/19/23 11/20/23 11/20/23 18:59 06:59 18:59 Intake Total 236 118 Balance 236 118 Weight 75.75 kg Intake: Oral 236 118 Other: Voiding Method Toilet Toilet Toilet # Voids 2 2 - Exam GENERAL DESCRIPTION: Middle-age male lying in bed in no distress RESPIRATORY SYSTEM: Unlabored breathing , decreased breath sounds at bases HEART: S1 S2 regular rate and rhythm , ABDOMEN: Soft , no tenderness EXTREMITIES: No edema feet - Labs CBC & Chem 7: 11/19/23 07:29 11/21/23 05:34 Assessment and Plan (1) Sinus pain Current Visit: Yes Status: Acute Code(s): J34.89 - OTHER SPECIFIED DISORDERS OF NOSE AND NASAL SINUSES SNOMED Code(s): 43052744 Plan: 1patient presented to hospital with left periorbital and maxillary area pain that has been going on for more than 2 weeks failed respond to the steroid and decongestant therapy with a possible component of bacterial sinusitis not entirely excluded. Abnormality on the facial CT MRI and MRA has been ordered however did not show any evidence of cavernous sinus thrombosis sinusitis or inflammation, there is a cystic lesion that need to be monitored or worked up further per admitting team 2-patient did have a normal inflammatory markers 3-patient is on empiric Unasyn however clinical suspicion is low for underlying infectious etiology and can be safely discontinued Dictation was produced using [employer] software. please excuse any grammatical, word or spelling errors. Time with Patient: Less than 30
[2023-11-21 11:17] LABS: Basophils # (A) 0.01 X 10*3/uL (0.00-0.10); Basophils % (A) 0.2 %; Eosinophils # (A) 0.01 X 10*3/uL (0.04-0.35); Eosinophils % (A) 0.2 %; HCT 29.4 % (39.6-50.0); HGB 10.1 g/dL (13.0-17.0); Immature Platelet Fraction 15.3 % (1.1-6.1); Lymphocytes # (A) 1.25 X 10*3/uL (0.90-5.00); Lymphocytes % (A) 23.5 %; MCH 34.7 pg (27.0-32.0); MCHC 34.4 g/dL (32.0-37.0); Mean Platelet Volume 12.2 FL (9.5-12.2); Monocytes # (A) 0.58 X 10*3/uL (0.20-1.00); Monocytes % (A) 10.9 %; NRBC Per 100 WBC 0 X 10*3/uL (0.00-0.01); Neutrophils # (A) 3.47 X 10*3/uL (1.80-7.70); Platelet Count 57 X 10*3/uL (140-440); RBC 2.91 X 10*6/uL (4.40-5.60); RDW 12.9 % (11.5-14.5); WBC 5.33 X 10*3/uL (4.50-10.00)
--- NOTE | 2023-11-21 11:47 | P.PN ---
Subjective Progress Note Date: 11/20/23 Patient was seen for a follow-up. Patient's his headache has not improved at all. He believes his headache was worse this morning. He already has received 2 doses of prednisone without any improvement. Doubt cluster headache. Suspect more like trigeminal neuralgia. Patient continues to have sensitivity and triggers, suggestive of possible TN. However patient had a bad headache just recently and he has lacrimation of the left eye. Objective - Vital Signs Vital signs: Vital Signs Temp 97.6 F 11/20/23 13:21 Pulse 60 11/20/23 13:21 Resp 16 11/20/23 13:21 BP 145/88 11/20/23 13:21 Pulse Ox 96 11/20/23 13:21 FiO2 Intake & Output 11/19/23 11/20/23 11/20/23 18:59 06:59 18:59 Intake Total 236 118 Balance 236 118 Weight 75.75 kg Intake: Oral 236 118 Other: Voiding Method Toilet Toilet Toilet # Voids 2 2 - Exam Normal. - Labs CBC & Chem 7: 11/21/23 05:34 11/21/23 05:34 Assessment and Plan Assessment: * Intermittent clusters of headache involving the left orbital/upper cheek region, that occurs almost every summer from October through December and then goes away. He has some triggers including eating, drinking or exposure to cold air. His headache has features of both cluster headache, as well as trigeminal neuralgia. Patient states that once the headache goes away in around December, then he has no triggers, and no pain until it comes back the following year in October. CT head was reviewed. There is some right maxillary sinus congestion with possible polyp versus fluid, however no abnormality noted involving the symptomatic left side, in the left maxillary, frontal or sphenoid sinuses. * Chronic alcoholism * Tobacco use * Hypertension Plan: * Patient's headaches has features of cluster headache, as well as some features of trigeminal neuralgia. At this time, we will treat for possible cluster headache with high-dose prednisone, which sometimes aborts these cluster headaches. Patient will be started on prednisone 60 mg daily. If the headache resolves, we will slowly taper down prednisone and may consider treatment like verapamil or lithium. If the headache does not respond to prednisone, we will consider Tegretol. Possible side effects of high-dose prednisone was discussed. * Patient has not responded so far to high-dose prednisone. Tegretol was considered, but patient has elevated liver enzymes. We will start Trileptal 150 mg twice a day. Patient was recommended to watch for any rash. * MRI of the brain with and without contrast revealed no abnormal postcontrast enhancement involving the globes and orbits. The intraconal and extraconal fat are relatively symmetrical. No evidence of acute/subacute infarct or abnormal enhancement. 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 Consider short-term follow-up in 3-6 months. Comparison with remote priors at outside institution may be of benefit for stability. * MRV showed no evidence of venous sinus thrombosis. MRA of the head showed no evidence of intracranial aneurysm or significant stenosis. * Optimize control of blood pressure.
--- NOTE | 2023-11-21 18:07 | P.PN ---
Subjective Progress Note Date: 11/21/23 Patient was seen for a follow-up. Patient states his headache is 30% better today. It is not hurting as much when he is laying still. However when he rolls over in the bed, and rubs his eyes against the elbow, or when he eats, it hurts, but not as intense. He is noticing some drowsiness from Trileptal. No new concerns. Objective - Vital Signs Vital signs: Vital Signs Temp 97.5 F L 11/21/23 13:47 Pulse 62 11/21/23 13:47 Resp 18 11/21/23 13:47 BP 118/78 11/21/23 13:47 Pulse Ox 97 11/21/23 13:47 FiO2 Intake & Output 11/20/23 11/21/23 11/21/23 18:59 06:59 18:59 Intake Total 118 118 Balance 118 118 Intake: Oral 118 118 Other: Voiding Method Toilet Toilet Toilet # Voids 3 2 2 - Exam Normal. - Labs CBC & Chem 7: 11/21/23 05:34 11/21/23 05:34 Labs: Abnormal Lab Results - Last 24 Hours (Table) 11/21/23 11/21/23 Range/Units 05:34 05:34 RBC 2.91 L (4.40-5.60) X 10*6/uL Hgb 10.1 L (13.0-17.0) g/dL Hct 29.4 L (39.6-50.0) % MCV 101.0 H (80.0-97.0) FL MCH 34.7 H (27.0-32.0) pg Plt Count 57 L (140-440) X 10*3/uL Eosinophils # 0.01 L (0.04-0.35) X 10*3/uL Immature Plt Fraction 15.3 H (1.1-6.1) % Sodium 129 L (135-145) mmol/L Carbon Dioxide 21.3 L (21.6-31.8) mmol/L BUN 6.0 L (9.0-27.0) mg/dL BUN/Creatinine Ratio 10.00 L (12.00-20.00) Ratio Glucose 123 H (70-110) mg/dL Magnesium 1.4 L (1.5-2.4) mg/dL AST 55 H (14-35) U/L Total Protein 5.8 L (6.2-8.2) g/dL Albumin 3.6 L (3.8-4.9) g/dL Microbiology - Last 24 Hours (Table) 11/19/23 14:11 Blood Culture - Preliminary Blood Assessment and Plan Assessment: * Intermittent clusters of headache involving the left orbital/upper cheek region, that occurs almost every summer from October through December and then goes away. He has some triggers including eating, drinking or exposure to cold air. His headache has features of both cluster headache, as well as trigeminal neuralgia. Patient states that once the headache goes away in around December, then he has no triggers, and no pain until it comes back the following year in October. CT head was reviewed. There is some right maxillary sinus congestion with possible polyp versus fluid, however no abnormality noted involving the symptomatic left side, in the left maxillary, frontal or sphenoid sinuses. * Chronic alcoholism * Tobacco use * Hypertension * Elevated liver enzymes, almost back to normal Plan: * Patient did not respond to prednisone. We will stop. * Patient's headache has improved 30% with Trileptal 150 mg twice a day. Patient probably has trigeminal neuralgia. Patient was recommended to watch for any rash. * MRI of the brain with and without contrast revealed no abnormal postcontrast enhancement involving the globes and orbits. The intraconal and extraconal fat are relatively symmetrical. No evidence of acute/subacute infarct or abnormal enhancement. 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 Consider short-term follow-up in 3-6 months. Comparison with remote priors at outside institution may be of benefit for stability. * MRV showed no evidence of venous sinus thrombosis. MRA of the head showed no evidence of intracranial aneurysm or significant stenosis. * Optimize control of blood pressure. * Recommend patient follow-up with neurologist for further management of probable trigeminal neuralgia. * Neurologically clear for discharge.
--- NOTE | 2023-11-21 22:14 | PN ---
PROGRESS NOTE DATE OF SERVICE: 11/21/2023 SUBJECTIVE: This 58-year-old gentleman admitted with significant left eye pain possibly with maxillary sinusitis. The patient is on broad spectrum IV antibiotics. No chest pain, no palpitation. OBJECTIVE: VITAL SIGNS: Pulse 67, blood pressure 130/70, respirations 16. CHEST: Clear to auscultation. CARDIOVASCULAR: S1, S2. ABDOMEN: Soft. NERVOUS SYSTEM: Nonfocal. LABORATORY DATA: Hemoglobin 10.1, sodium 129, rest of the labs are noted. ASSESSMENT: 1. Left eye pain and swelling with possibly maxillary sinusitis. 2. Cavernous sinus thrombosis and intracranial pathology ruled out by MRI. 3. No evidence of perioperative infection. 4. ETOH withdrawal. 5. Hypertension. 6. Multiple medical issues. RECOMMENDATIONS: Recommended to continue current management, continue symptomatic treatment. Continue with antibiotics. Recommended close followup with primary physician in the outpatient setting, alcohol rehab, and also ENT evaluation also. Discussed with the patient, he understands and agrees. ENT evaluation as an outpatient. MMODL / IJN: [id number] /
[2023-11-22 02:34] VITALS: TEMP 97.8
[2023-11-22 08:33] VITALS: BP 131/78; PULSE 74; RESP 16
[2023-11-22] MEDS: IBUPROFEN 800 MG TAB PO PRN (09:47)
--- NOTE | 2023-11-22 13:35 | DS ---
DISCHARGE SUMMARY FINAL DIAGNOSES: 1. Left eye pain and swelling with possibly maxillary sinusitis. 2. Cavernous sinus thrombosis and intracranial pathology ruled out by MRI. 3. No evidence of periorbital infection. 4. ETOH withdrawal. 5. Hypertension. 6. Multiple medical issues. DISCHARGE DISPOSITION: The patient will be discharged in stable condition with guarded prognosis. HISTORY OF PRESENT ILLNESS: This 58-year-old gentleman was admitted with left eye pain and swelling. Treated with antibiotics, improved significantly. The patient came from [facility], but at this time the patient would like to go home and follow up with rehab later. Please see the Neurology and Infectious Disease note for further information. PHYSICAL EXAMINATION: VITALS: Stable. CARDIOVASCULAR: S1, S2. ABDOMEN: Soft. HEENT: Face is normal at this time. So, the patient will be discharged with the plans to follow up with Augmentin for 5 more days and continue with Trileptal and Librium. Follow up with primary physician. Follow up with ID and the ENT in outpatient setting of patient's choice. MMODL / IJN: [id number] /
--- NOTE | 2023-11-29 07:40 | P.PN ---
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 on today's evaluation that is 11/21/2023, Patient remains to be afebrile, patient pain to the left periorbital and maxillary area has decreased with the current pain medication, patient is on room air and is breathing comfortably denies having any pain on movement of the right right hand no difficulty swallowing no chest pain shortness of breath or cough White count is 5.33 today creatinine 0.6 blood cultures so far negative Objective - Vital Signs Vital signs: Vital Signs Temp 97.5 F L 11/21/23 13:47 Pulse 62 11/21/23 13:47 Resp 18 11/21/23 13:47 BP 118/78 11/21/23 13:47 Pulse Ox 97 11/21/23 13:47 FiO2 Intake & Output 11/20/23 11/21/23 11/21/23 18:59 06:59 18:59 Intake Total 118 118 Balance 118 118 Intake: Oral 118 118 Other: Voiding Method Toilet Toilet Toilet # Voids 3 2 2 - Exam GENERAL DESCRIPTION: Middle-age male lying in bed in no distress RESPIRATORY SYSTEM: Unlabored breathing , decreased breath sounds at bases HEART: S1 S2 regular rate and rhythm , ABDOMEN: Soft , no tenderness EXTREMITIES: No edema feet - Labs CBC & Chem 7: 11/21/23 05:34 11/21/23 05:34 Labs: Abnormal Lab Results - Last 24 Hours (Table) 11/21/23 11/21/23 Range/Units 05:34 05:34 RBC 2.91 L (4.40-5.60) X 10*6/uL Hgb 10.1 L (13.0-17.0) g/dL Hct 29.4 L (39.6-50.0) % MCV 101.0 H (80.0-97.0) FL MCH 34.7 H (27.0-32.0) pg Plt Count 57 L (140-440) X 10*3/uL Eosinophils # 0.01 L (0.04-0.35) X 10*3/uL Immature Plt Fraction 15.3 H (1.1-6.1) % Sodium 129 L (135-145) mmol/L Carbon Dioxide 21.3 L (21.6-31.8) mmol/L BUN 6.0 L (9.0-27.0) mg/dL BUN/Creatinine Ratio 10.00 L (12.00-20.00) Ratio Glucose 123 H (70-110) mg/dL Magnesium 1.4 L (1.5-2.4) mg/dL AST 55 H (14-35) U/L Total Protein 5.8 L (6.2-8.2) g/dL Albumin 3.6 L (3.8-4.9) g/dL Microbiology - Last 24 Hours (Table) 11/19/23 14:11 Blood Culture - Preliminary Blood Assessment and Plan (1) Sinus pain Status: Acute Code(s): J34.89 - OTHER SPECIFIED DISORDERS OF NOSE AND NASAL SINUSES SNOMED Code(s): 29652451 Plan: 1patient presented to hospital with left periorbital and maxillary area pain that has been going on for more than 2 weeks failed respond to the steroid and decongestant therapy with a possible component of bacterial sinusitis not entirely excluded. Abnormality on the facial CT MRI and MRA has been ordered however did not show any evidence of cavernous sinus thrombosis sinusitis or inflammation, there is a cystic lesion that need to be monitored or worked up further per admitting team 2-patient did have a normal inflammatory markers 3-patient to continue with empiric Unasyn and monitor clinical course closely Dictation was produced using [employer] dictation software. please excuse any grammatical, word or spelling errors. Time with Patient: Less than 30
--- NOTE | 2023-11-29 07:41 | P.PN ---
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 on today's evaluation that is 11/22/2023, Patient denies any fever or any chills patient pain to the left periorbital and maxillary area has decreased in intensity patient mention feeling better denies having any pain on movement of the eye by the no chest pain shortness with or cough no nausea vomiting or diarrhea No new diet has been obtained today blood cultures so far negative Objective - Vital Signs Vital signs: Vital Signs Temp 97.8 F 11/22/23 07:00 Pulse 74 11/22/23 07:00 Resp 16 11/22/23 07:00 BP 131/78 11/22/23 07:00 Pulse Ox 96 11/22/23 07:00 FiO2 Intake & Output 11/21/23 11/22/23 11/22/23 18:59 06:59 18:59 Intake Total 118 240 Balance 118 240 Intake: Oral 118 240 Other: Voiding Method Toilet Toilet # Voids 2 2 - Exam GENERAL DESCRIPTION: Middle-age male lying in bed in no distress RESPIRATORY SYSTEM: Unlabored breathing , decreased breath sounds at bases HEART: S1 S2 regular rate and rhythm , ABDOMEN: Soft , no tenderness EXTREMITIES: No edema feet - Labs CBC & Chem 7: 11/21/23 05:34 11/21/23 05:34 Labs: Microbiology - Last 24 Hours (Table) 11/19/23 14:11 Blood Culture - Preliminary Blood Assessment and Plan (1) Sinus pain Status: Acute Code(s): J34.89 - OTHER SPECIFIED DISORDERS OF NOSE AND NASAL SINUSES SNOMED Code(s): 08008583 Plan: 1patient presented to hospital with left periorbital and maxillary area pain that has been going on for more than 2 weeks failed respond to the steroid and decongestant therapy with a possible component of bacterial sinusitis not entirely excluded. Abnormality on the facial CT MRI and MRA has been ordered however did not show any evidence of cavernous sinus thrombosis sinusitis or inflammation, there is a cystic lesion that need to be monitored or worked up further per admitting team 2-patient did have a normal inflammatory markers 3-patient mention some improvement with empiric Unasyn and may consider short course of oral Augmentin on discharge Dictation was produced using [employer] dictation software. please excuse any grammatical, word or spelling errors. Time with Patient: Less than 30
== END 2023-11-22 12:07 | disposition home or self-care (01) | DRG 113 ==
LOC: EC 13:07 → 6NMEDSUR 18:40 → OBSVTOIN 18:41 → 6NMEDSUR 22:03
PROVIDERS: ADMIT Hospitalist; ATTEND Hospitalist
DX: J32.0 Chronic maxillary sinusitis (principal); I10 Essential (primary) hypertension; G50.0 Trigeminal neuralgia; F17.210 Nicotine dependence, cigarettes, uncomplicated; F10.139 Alcohol abuse with withdrawal, unspecified; E34.8 Other specified endocrine disorders; G44.009 Cluster headache syndrome, unspecified, not intractable; E87.6 Hypokalemia; E87.1 Hypo-osmolality and hyponatremia; D64.9 Anemia, unspecified; Z79.899 Other long term (current) drug therapy
CPT/HCPCS: 36415; 70487; 70544; 70553; 80048; 80053; 83735; 85025; 85652; 86140; 87040; 96372; 96374; 96375; 96376; 99285